=== PATIENT | male | born 1970 | race Caucasian/White ===

== ENCOUNTER 2020-01-10 19:20 | Inpatient (IN) | payer SELFPAY ==
[~2020-01-10] VITALS: Ht 177.8 cm; Wt 104.5 kg
[~2020-01-10 19:20] MED LIST: CHLO25CA10 PO; ONDA4TAB6 PO
[2020-01-10] MEDS ORDERED: normal saline 1000ML IV soln IVB ONE ×2 (19:30→20:15)
[2020-01-10] MEDS ORDERED: LORazepam 2 mg/ml vial IV ONE ×2 (19:30→20:15)
[2020-01-10 19:47] LABS: BASOPHILS % (AUTO) 0.3 % (0-1); EOSINOPHILS % (AUTO) 0 % (0-6); HEMATOCRIT 48.9 % (42.0-52.0); HEMOGLOBIN 16.8 g/dl (14.0-17.9); LYMPHOCYTES # (AUTO) 1.2 X10'3 (1.1-4.8); LYMPHOCYTES % (AUTO) 8.7 % (21-51); MEAN CORPUSCULAR HEMOGLOBIN 31.5 PG (27.0-31.0); MEAN CORPUSCULAR HGB CONC 34.3 g/dL (33.0-36.5); MEAN CORPUSCULAR VOLUME 91.8 FL (78-98); MEAN PLATELET VOLUME 9.3 FL (7.4-10.4); MONOCYTES # (AUTO) 0.4 X10'3 (0-0.9); MONOCYTES % (AUTO) 3.1 % (2-12); NEUTROPHILS # (AUTO) 12.1 X10'3 (1.8-7.7); NEUTROPHILS % (AUTO) 87.9 % (42-75); PLATELET COUNT 206 X10'3 (140-440); RED BLOOD COUNT 5.33 X10'6 (4.70-6.10); RED CELL DISTRIBUTION WIDTH 15.2 % (11.5-14.5); WHITE BLOOD COUNT 13.8 X10'3 (4.5-11.0)
[2020-01-10 19:54] LABS: PARTIAL THROMBOPLASTIN TIME 23 SECONDS (22-32)
[2020-01-10 20:05] LABS: ALANINE AMINOTRANSFERASE 44 U/L (12-78); ALBUMIN 4.1 G/DL (3.4-5.0); ALBUMIN/GLOBULIN RATIO 0.9 (1.1-1.5); ALKALINE PHOSPHATASE 89 IU/L (46-116); ANION GAP 28 (8-16); ASPARTATE AMINO TRANSFERASE 62 U/L (10-37); BILIRUBIN,TOTAL 1.2 MG/DL (0.1-1.0); BLOOD UREA NITROGEN 6 MG/DL (7-18); BUN/CREATININE RATIO 5.7 (5.4-32.0); CALCIUM 9.3 MG/DL (8.5-10.1); CHLORIDE 98 MMOL/L (99-107); CREATININE 1.06 MG/DL (0.60-1.10); ETHANOL 0.031 GM/DL (0.0-0.010); GLUCOSE 88 MG/DL (70-104); LIPASE 56 U/L (73-393); MAGNESIUM 1.2 MG/DL (1.5-2.4); POTASSIUM 3.4 MMOL/L (3.5-5.1); SODIUM 141 MMOL/L (135-145); TOTAL PROTEIN 8.7 G/DL (6.4-8.2); eGFR 74 ML/MIN
[2020-01-10 20:07] LABS: CLARITY,URINE CLEAR (Clear); COLOR,URINE YELLOW (Yellow); GLUCOSE, URINE NEGATIVE (Neg); KETONES,URINE >=80 mg/dl (Neg); LEUKOCYTE ESTERASE ,URINE NEGATIVE (Neg); NITRITES, URINE NEGATIVE (Neg); OCCULT BLOOD,URINE NEGATIVE (Neg); PH,URINE 5.5 (4.8-8.0); PROTEIN,URINE 30 mg/dl (Neg); UROBILINOGEN,URINE 0.2 E.U/dL (0.2-1.0)
[2020-01-10 20:08] LABS: TOTAL CARBON DIOXIDE 14.8 MMOL/L (24-32)
[2020-01-10 20:10] LABS: UA COLLECTION TYPE URINAL
[2020-01-10] MEDS ORDERED: potassium 10mEq/100ml NS w/LIDOcaine (10mg/bag) IV ONE (20:15)
[2020-01-10] MEDS ORDERED: haloperidol lactate 5mg/ml inj IM ONE (20:15)
[2020-01-10] MEDS ORDERED: magnesium 2GM in 50ml NS 50 ML IV ONE ×2 (20:15→21:50)
[2020-01-10] MEDS ORDERED: Potassium Cl inj 20 MEQ, magnesium sulf injection 2 GM, folic acid inj. 1 MG, thiamine ... IV ONE ×6 (20:15)
[2020-01-10 20:18] LABS: SQUAMOUS EPITHELIAL CELL,UR FEW /LPF (FEW)
[2020-01-10] MEDS ORDERED: potassium CL 10mEq/100ml bag 100 ML IV ONE (20:20)
[2020-01-10] MEDS ORDERED: Potassium Cl inj 20 MEQ, magnesium sulf injection 2 GM, thiamine inj. 100 MG, MVI, adul... IV ONE ×5 (20:21)
[2020-01-10 20:25] LABS: BACTERIA,URINE FEW /HPF (Neg); RBC,URINE NONE SEEN /HPF (0-2); WBC,URINE 0-4 /HPF (0-4)
[2020-01-10] MEDS ORDERED: folic acid 1mg/0.2ml inj IV ONE (20:25)
[2020-01-10] MEDS ORDERED: PANT20TA2 PO (21:03)
[2020-01-10] MEDS ORDERED: AMA1T PO (21:03)
[2020-01-10] MEDS ORDERED: CLON0.1T2 (21:03)
[2020-01-10] MEDS ORDERED: GABA-530 PO (21:03)
[2020-01-10] MEDS ORDERED: TADA2.5T2 PO (21:03)
[2020-01-10] MEDS ORDERED: LISI-600 PO (21:03)
[2020-01-10] MEDS ORDERED: NALT50TA PO (21:03)
[2020-01-10] MEDS ORDERED: LORA10TA7 PO (21:03)
[2020-01-10] MEDS ORDERED: magnesium Cl slow-release 64mg tablet PO PRN (22:15)
[2020-01-10] MEDS ORDERED: acetaminophen 325mg tablet PO PRN (22:15)
[2020-01-10] MEDS ORDERED: magnesium hydroxide 30ml (MOM) UD suspension PO PRN (22:15)
[2020-01-10] MEDS ORDERED: potassium Cl 20 mEq SR tablet PO PRN (22:15)
[2020-01-10] MEDS ORDERED: magnesium 2GM in 50ml NS 50 ML IV PRN (22:15)
[2020-01-10] MEDS ORDERED: ondansetron/PF 4mg/2ml inj IV PRN (22:15)
[2020-01-10] MEDS ORDERED: potassium CL 10mEq/100ml bag 100 ML IV PRN ×2 (22:15)
[2020-01-10] MEDS ORDERED: LORazepam 2 mg/ml vial IV PRN (22:15)
[2020-01-10] MEDS ORDERED: mag hydrox/Alum hydrox/simeth 30ml oral suspension PO PRN (22:15)
[2020-01-10] MEDS ORDERED: magnesium 4gm in 100ml NS 100 ML IV PRN (22:15)
[2020-01-10] MEDS ORDERED: insulin Lispro (HumaLOG) vial - multi-dose SQ SCH (22:30)
[2020-01-10] MEDS ORDERED: dextrose ORAL solution 15 GM/59 ML bottle PO PRN ×2 (22:30)
[2020-01-10] MEDS ORDERED: dextrose 50%-water 50ml dispensing syringe IV PRN ×2 (22:30)
[2020-01-10] MEDS ORDERED: MESSAGE TO PHARMACY PO ONE (22:30)
[2020-01-10] MEDS ORDERED: glucagon, human recombinant 1mg kit SUBCUT PRN (22:30)
[2020-01-10] MEDS: normal saline 1000ml 1,000 ML IV SCH (22:52)
[2020-01-10 23:11] LABS: HEMOGLOBIN A1C 5.6 % (4.5-6.2)
[2020-01-10] MEDS: potassium Cl 20 mEq SR tablet PO PRN (23:41)
[2020-01-10 23:45] VITALS: BP 142/69
--- NOTE | 2020-01-11 | NUR ---
CHARGE, NITO HAIDER NOTIFIED DR GRIDER OF LACTIC LEVEL OF 7.7. THERE IS NO NEED FOR FLUID BOLUS, NO NEED FOR BLOOD CULTURE AND NO NEW ORDER RECEIVED.
[2020-01-11] MEDS: LORazepam 2 mg/ml vial IV PRN ×4 (00:11→20:31)
--- NOTE | 2020-01-11 00:25 | NUR ---
notified Dr. GRIDER OF CRITICAL LACTIC OF 4.3. ORDERED ANOTHER LACTIC IN 2HRS.
[2020-01-11 02:28] LABS: BASOPHILS % (AUTO) 0.5 % (0-1); EOSINOPHILS % (AUTO) 0 % (0-6); HEMATOCRIT 41.4 % (42.0-52.0); HEMOGLOBIN 14.2 g/dl (14.0-17.9); LYMPHOCYTES # (AUTO) 0.7 X10'3 (1.1-4.8); LYMPHOCYTES % (AUTO) 7.6 % (21-51); MEAN CORPUSCULAR HGB CONC 34.3 g/dL (33.0-36.5); MEAN CORPUSCULAR VOLUME 90.2 FL (78-98); MONOCYTES # (AUTO) 0.7 X10'3 (0-0.9); MONOCYTES % (AUTO) 7.4 % (2-12); NEUTROPHILS # (AUTO) 8.3 X10'3 (1.8-7.7); NEUTROPHILS % (AUTO) 84.5 % (42-75); PLATELET COUNT 141 X10'3 (140-440); RED BLOOD COUNT 4.59 X10'6 (4.70-6.10); RED CELL DISTRIBUTION WIDTH 15.2 % (11.5-14.5); WHITE BLOOD COUNT 9.8 X10'3 (4.5-11.0)
[2020-01-11 02:43] LABS: ALANINE AMINOTRANSFERASE 33 U/L (12-78); ALBUMIN 3.2 G/DL (3.4-5.0); ALBUMIN/GLOBULIN RATIO 0.8 (1.1-1.5); ALKALINE PHOSPHATASE 69 IU/L (46-116); ANION GAP 14 (8-16); ASPARTATE AMINO TRANSFERASE 49 U/L (10-37); BILIRUBIN,TOTAL 1.3 MG/DL (0.1-1.0); BLOOD UREA NITROGEN 6 MG/DL (7-18); BUN/CREATININE RATIO 5.9 (5.4-32.0); CALCIUM 7.7 MG/DL (8.5-10.1); CHLORIDE 100 MMOL/L (99-107); CREATININE 1.01 MG/DL (0.60-1.10); GLUCOSE 194 MG/DL (70-104); MAGNESIUM 2.8 MG/DL (1.5-2.4); SODIUM 136 MMOL/L (135-145); TOTAL PROTEIN 7.1 G/DL (6.4-8.2); eGFR 79 ML/MIN
[2020-01-11] MEDS ORDERED: ondansetron/PF 4mg/2ml inj IV PRN (03:05)
--- NOTE | 2020-01-11 03:05 | NUR ---
CRITICAL LACTIC ACID OF 4.1. DR GRIDER NOTIFIED. NO NEED TO REPEAT LAB AND NO NEW ORDERS RECEIVED.
--- NOTE | 2020-01-11 06:03 | NUR ---
Problems reprioritized. Patient report given, questions answered & plan of care reviewed with MELIZA SMILEY.
--- NOTE | 2020-01-11 06:20 | NUR ---
Patient in room ORTHO 4015. I have received report from Irma and had the opportunity to ask questions and assume patient care.
--- NOTE | 2020-01-11 06:28 | NUR ---
Problems reprioritized. Patient report given, questions answered & plan of care reviewed with MELIZA VELIZ.
[2020-01-11 06:35] VITALS: BP 145/93
[2020-01-11] MEDS: K and/or MAG REPLACEMENT MC SCH ×2 (08:00→20:00)
[2020-01-11] MEDS: pantoprazole 40mg Tablet.DR PO SCH (09:31)
[2020-01-11] MEDS: loratadine 10mg tablet PO SCH (09:31)
[2020-01-11] MEDS: naltrexone 50mg tablet PO SCH (09:31)
[2020-01-11] MEDS: lisinopril 20mg tablet PO SCH (09:32)
[2020-01-11] MEDS: thiamine 100mg tablet PO SCH (09:32)
[2020-01-11] MEDS: heparin, porcine 5000 units/ml vial SQ SCH ×2 (09:34→20:00)
[2020-01-11] MEDS: normal saline 1000ml 1,000 ML IV SCH ×2 (09:38→20:31)
[2020-01-11 10:00] VITALS: BP 150/85
--- NOTE | 2020-01-11 14:52 | NUR ---
PAGER ID: [phone] MESSAGE: Tessie Wooten on ortho, Mr. López in [id number] is asking about his discharge, states he is ready to go, just christos, #[phone]
[2020-01-11] MEDS ORDERED: OMEP-50 PO (17:12)
--- NOTE | 2020-01-11 18:10 | NUR ---
Problems reprioritized. Patient report given, questions answered & plan of care reviewed with Mabel.
--- NOTE | 2020-01-11 18:15 | NUR ---
RECEIVED REPORT FROM JOSE ALFREDO HAIDER AND ASSUMED PATIENT CARE
[2020-01-11 22:00] VITALS: BP 129/74
[2020-01-12] MEDS: normal saline 1000ml 1,000 ML IV SCH (04:15)
[2020-01-12 06:00] VITALS: BP 159/96
[2020-01-12 06:17] LABS: BASOPHILS % (AUTO) 0.5 % (0-1); EOSINOPHILS % (AUTO) 0.5 % (0-6); HEMATOCRIT 40.7 % (42.0-52.0); HEMOGLOBIN 14.2 g/dl (14.0-17.9); LYMPHOCYTES # (AUTO) 1.2 X10'3 (1.1-4.8); LYMPHOCYTES % (AUTO) 27.8 % (21-51); MEAN CORPUSCULAR HEMOGLOBIN 31.3 PG (27.0-31.0); MEAN CORPUSCULAR HGB CONC 34.8 g/dL (33.0-36.5); MEAN CORPUSCULAR VOLUME 90.1 FL (78-98); MONOCYTES # (AUTO) 0.4 X10'3 (0-0.9); MONOCYTES % (AUTO) 10.1 % (2-12); NEUTROPHILS # (AUTO) 2.6 X10'3 (1.8-7.7); NEUTROPHILS % (AUTO) 61.1 % (42-75); PLATELET COUNT 107 X10'3 (140-440); RED BLOOD COUNT 4.52 X10'6 (4.70-6.10); RED CELL DISTRIBUTION WIDTH 15.4 % (11.5-14.5); WHITE BLOOD COUNT 4.2 X10'3 (4.5-11.0)
[2020-01-12 06:24] LABS: ALANINE AMINOTRANSFERASE 26 U/L (12-78); ALBUMIN 2.9 G/DL (3.4-5.0); ALBUMIN/GLOBULIN RATIO 0.8 (1.1-1.5); ALKALINE PHOSPHATASE 59 IU/L (46-116); ANION GAP 8 (8-16); ASPARTATE AMINO TRANSFERASE 35 U/L (10-37); BILIRUBIN,TOTAL 1.3 MG/DL (0.1-1.0); BLOOD UREA NITROGEN 4 MG/DL (7-18); BUN/CREATININE RATIO 4.8 (5.4-32.0); CALCIUM 7.5 MG/DL (8.5-10.1); CHLORIDE 103 MMOL/L (99-107); CREATININE 0.83 MG/DL (0.60-1.10); GLUCOSE 112 MG/DL (70-104); MAGNESIUM 1.7 MG/DL (1.5-2.4); POTASSIUM 3.4 MMOL/L (3.5-5.1); SODIUM 138 MMOL/L (135-145); TOTAL CARBON DIOXIDE 27.3 MMOL/L (24-32); TOTAL PROTEIN 6.6 G/DL (6.4-8.2); eGFR > 90 ML/MIN
--- NOTE | 2020-01-12 06:30 | NUR ---
REPORT GIVEN TO MALISSA HAIDER
[2020-01-12] MEDS: K and/or MAG REPLACEMENT MC SCH (08:00)
[2020-01-12] MEDS: pantoprazole 40mg Tablet.DR PO SCH (08:15)
[2020-01-12] MEDS: thiamine 100mg tablet PO SCH (08:16)
[2020-01-12] MEDS: loratadine 10mg tablet PO SCH (08:16)
[2020-01-12] MEDS: lisinopril 20mg tablet PO SCH (08:24)
[2020-01-12] MEDS: naltrexone 50mg tablet PO SCH (08:24)
[2020-01-12] MEDS: heparin, porcine 5000 units/ml vial SQ SCH (08:27)
[2020-01-12] MEDS: potassium Cl 20 mEq SR tablet PO PRN (08:33)
[2020-01-12] MEDS: LORazepam 2 mg/ml vial IV PRN (08:35)
[2020-01-12 10:00] VITALS: BP 171/108
--- NOTE | 2020-01-12 11:27 | NUR ---
Student documentation: I have reviewed all interventions, assessments performed and documented by Jaguar Person. Student Medication Administration: For this medication-pass time frame, all medication were reviewed, dispensed, administered and documented per hospital policy by [employer]ar Person.
--- NOTE | 2020-01-12 12:30 | NUR ---
DM Consult: Pt A1C less than 7 and not appropriate for DM ed at this time. Addendum: 01/12/20 at [address] Amended: Links added.
[2020-01-12] MEDS ORDERED: gabapentin 100mg capsule PO SCH (21:00)
[2020-01-13] MEDS ORDERED: pantoprazole 40mg Tablet.DR PO SCH (07:30)
[2020-01-13] MEDS ORDERED: glimepiride 1 MG tablet PO SCH (08:00)
[2020-01-13] MEDS ORDERED: non-formulary drug (Omeprazole 1 CAP) PO SCH (08:00)
== END 2020-01-12 15:34 | disposition home or self-care (01) | DRG 641 ==
LOC: ER 19:20 → ED HOLD 22:11 → ORTHO 4S 23:40
PROVIDERS: ADMIT Internal Medicine; ATTEND Internal Medicine
DX: E87.2 Acidosis (principal); F10.239 Alcohol dependence with withdrawal, unspecified; E11.42 Type 2 diabetes mellitus with diabetic polyneuropathy; E83.42 Hypomagnesemia; E87.5 Hyperkalemia; I10 Essential (primary) hypertension; Z79.84 Long term (current) use of oral hypoglycemic drugs; Z91.19 Patient's noncompliance with other medical treatment and regimen; K21.9 Gastro-esophageal reflux disease without esophagitis
CPT/HCPCS: 36415; 71045; 80053; 80320; 81001; 82948; 83036; 83605; 83690; 83735; 83880; 84484; 85025; 85610; 85730; 87081; 93005; 96372; 96374; 96375; 99285; G0378; J1630; J1644; J1815; J2060; J2405; J3411; J3475; J3480; J3490; J7030

== ENCOUNTER 2020-03-05 23:17 | Emergency (ER) | payer SELFPAY ==
[~2020-03-05] VITALS: Ht 170.2 cm; Wt 95.0 kg
[~2020-03-05 23:17] MED LIST changes: +AMA1T PO; -CHLO25CA10 PO; +CLON0.1T2; +GABA-530 PO; +LISI-600 PO; +LORA10TA7 PO; +NALT50TA PO; +OMEP-50 PO; -ONDA4TAB6 PO; +TADA2.5T2 PO
[2020-03-05 23:19] VITALS: BP 181/96
[2020-03-05] MEDS ORDERED: proparacaine 0.5% ophthalmic drops 15ml EACHEYE ONE (23:35)
[2020-03-05] MEDS ORDERED: TETanus/Pertussis (Acell)/Diphther VAC/PF (Tdap-Adult) 0.5ml syringe IMVAC ONE (23:45)
[2020-03-05] MEDS ORDERED: ondansetron 4mg rapidly disintigrating tab PO ONE (23:45)
[2020-03-05] MEDS ORDERED: erythromycin ophthalmic ointment 1gm tube EACHEYE ONE (23:55)
[2020-03-05] MEDS ORDERED: ibuprofen tablet 400 MG TABLET PO ONE (23:55)
[2020-03-05] MEDS ORDERED: acetaminophen 325mg tablet PO ONE (23:55)
[2020-03-06] MEDS ORDERED: ERYT1OIN6 EACHEYE (00:14)
== END 2020-03-06 00:29 | disposition home or self-care (01) ==
LOC: ER 23:17
DX: H16.133 Photokeratitis, bilateral (principal); I10 Essential (primary) hypertension; E11.9 Type 2 diabetes mellitus without complications; Z72.89 Other problems related to lifestyle; Z79.899 Other long term (current) drug therapy
CPT/HCPCS: 90471; 90715; 99284

== ENCOUNTER 2020-04-18 08:54 | Inpatient (IN) | payer OTHER, SELFPAY ==
[~2020-04-18] VITALS: Ht 170.2 cm; Wt 95.5 kg
[~2020-04-18 08:54] MED LIST changes: -CLON0.1T2; +CLON0.1T2 PO
[2020-04-18] MEDS ORDERED: folic acid 1mg tablet PO ONE (09:10)
[2020-04-18] MEDS ORDERED: normal saline 1000ML IV soln IV ONE (09:10)
[2020-04-18] MEDS ORDERED: LORazepam 2 mg/ml vial IM ONE (09:10)
[2020-04-18] MEDS ORDERED: thiamine 100mg tablet PO ONE (09:10)
[2020-04-18] MEDS ORDERED: LORazepam 2 mg/ml vial IV ONE ×2 (09:45→14:25)
[2020-04-18 09:47] LABS: BASOPHILS # (AUTO) 0.1 X10'3 (0-0.2); BASOPHILS % (AUTO) 0.3 % (0-1); EOSINOPHILS % (AUTO) 0 % (0-6); HEMATOCRIT 45.5 % (42.0-52.0); HEMOGLOBIN 14.9 g/dl (14.0-17.9); LYMPHOCYTES # (AUTO) 0.6 X10'3 (1.1-4.8); LYMPHOCYTES % (AUTO) 2.6 % (21-51); MEAN CORPUSCULAR HEMOGLOBIN 29.5 PG (27.0-31.0); MEAN CORPUSCULAR HGB CONC 32.7 g/dL (33.0-36.5); MEAN CORPUSCULAR VOLUME 90.2 FL (78-98); MEAN PLATELET VOLUME 9.3 FL (7.4-10.4); MONOCYTES # (AUTO) 0.8 X10'3 (0-0.9); MONOCYTES % (AUTO) 3.7 % (2-12); NEUTROPHILS # (AUTO) 20.8 X10'3 (1.8-7.7); NEUTROPHILS % (AUTO) 93.4 % (42-75); PLATELET COUNT 230 X10'3 (140-440); RED BLOOD COUNT 5.05 X10'6 (4.70-6.10); RED CELL DISTRIBUTION WIDTH 16.6 % (11.5-14.5); WHITE BLOOD COUNT 22.2 X10'3 (4.5-11.0)
[2020-04-18 09:55] LABS: ALANINE AMINOTRANSFERASE 24 U/L (12-78); ALBUMIN 3.8 G/DL (3.4-5.0); ALBUMIN/GLOBULIN RATIO 0.9 (1.1-1.5); ALKALINE PHOSPHATASE 98 IU/L (46-116); ANION GAP 39 (8-16); ASPARTATE AMINO TRANSFERASE 46 U/L (10-37); BILIRUBIN,TOTAL 0.8 MG/DL (0.1-1.0); BLOOD UREA NITROGEN 8 MG/DL (7-18); BUN/CREATININE RATIO 4.4 (5.4-32.0); CALCIUM 8.8 MG/DL (8.5-10.1); CHLORIDE 97 MMOL/L (99-107); CREATININE 1.81 MG/DL (0.60-1.10); ETHANOL 0.062 GM/DL (0.0-0.010); GLUCOSE 76 MG/DL (70-104); LIPASE 65 U/L (73-393); MAGNESIUM 1.5 MG/DL (1.5-2.4); POTASSIUM 3.8 MMOL/L (3.5-5.1); SODIUM 144 MMOL/L (135-145); TOTAL PROTEIN 8.1 G/DL (6.4-8.2); eGFR 40 ML/MIN
[2020-04-18 09:56] LABS: TOTAL CARBON DIOXIDE 8.5 MMOL/L (24-32)
[2020-04-18] MEDS ORDERED: ondansetron/PF 4mg/2ml inj IV ONE (10:05)
[2020-04-18] MEDS ORDERED: ringers solution, lactated 1000ml IV soln IV ONE (10:05)
[2020-04-18] MEDS ORDERED: phenobarbital inj 260 MG in normal saline 100ml IV soln 100 ML IV ONE (10:40)
[2020-04-18] MEDS ORDERED: phenobarbital inj 260 MG in normal saline 100ml IV soln 98 ML IV ONE (10:50)
[2020-04-18] MEDS ORDERED: morphine 2 MG/ML inj. syringe IV ONE (10:50)
[2020-04-18] MEDS ORDERED: ketorolac tromethamine 15mg/ml inj. IV ONE (10:50)
--- NOTE | 2020-04-18 11:04 | NUR ---
US at bedside
[2020-04-18] MEDS ORDERED: CefTRIAXone/D5W-Rocephin 1gm 50 ML IV ONE (11:15)
--- NOTE | 2020-04-18 11:21 | NUR ---
lab at bedside to draw culture and lactic
[2020-04-18] MEDS ORDERED: phenobarbital inj 130 MG in normal saline 100ml IV soln 99 ML IV ONE ×3 (11:30→13:10)
[2020-04-18] MEDS ORDERED: mag hydrox/Alum hydrox/simeth 30ml oral suspension PO ONE ×2 (12:00→14:35)
[2020-04-18] MEDS ORDERED: LIDOcaine Viscous 15ml cup MM PRN (12:00)
[2020-04-18 12:10] LABS: CREATINE KINASE 410 U/L (39-308)
[2020-04-18 12:17] LABS: CLARITY,URINE SLIGHTLY CLOUDY (Clear); COLOR,URINE YELLOW (Yellow); GLUCOSE, URINE NEGATIVE (Neg); KETONES,URINE 15 mg/dl (Neg); LEUKOCYTE ESTERASE ,URINE TRACE (Neg); NITRITES, URINE NEGATIVE (Neg); OCCULT BLOOD,URINE SMALL (Neg); PH,URINE 5.5 (4.8-8.0); PROTEIN,URINE TRACE mg/dl (Neg); UROBILINOGEN,URINE 0.2 E.U/dL (0.2-1.0)
[2020-04-18 12:24] LABS: UA COLLECTION TYPE VOIDED
[2020-04-18 12:25] LABS: SQUAMOUS EPITHELIAL CELL,UR FEW /LPF (FEW)
[2020-04-18 12:26] LABS: BACTERIA,URINE 1+ /HPF (Neg); RBC,URINE 0-2 /HPF (0-2); WBC,URINE 0-4 /HPF (0-4)
[2020-04-18 12:34] LABS: ABG BASE EXCESS -15.7 mmol/L (-2.0-2.0); ABG HCO3 9.7 mmol/L (22.0-26.0); ABG OXYGEN SATURATION 95.7 % (94-97); ABG PO2 (T) 85.9 mmHg (75.0-100.0); ALLEN'S TEST POSITIVE; FCOHb 0.2 % (0.0-3.9); FMetHb 0.2 % (0.0-1.5); FO2Hb 95.3 % (94-97)
[2020-04-18 12:39] LABS: URINE AMPHETAMINE SCREEN NEGATIVE (Neg); URINE BARBITUATE SCREEN NEGATIVE (Neg); URINE BENZODIAZEPINES SCREEN NEGATIVE (Neg); URINE CANNABINOID SCREEN NEGATIVE (Neg); URINE COCAINE SCREEN NEGATIVE (Neg); URINE METHADONE SCREEN NEGATIVE (Neg); URINE OPIATE SCREEN NEGATIVE (Neg); URINE PHENCYCLIDINE SCREEN NEGATIVE (Neg)
[2020-04-18] MEDS ORDERED: normal saline 1000ML IV soln IVB ONE ×3 (12:40→14:25)
[2020-04-18] MEDS ORDERED: HYDROmorphone inj. 0.5 MG/0.5 ML DISP.SYRIN IV PRN (12:55)
[2020-04-18] MEDS ORDERED: thiamine inj. 100 MG in normal saline 100ml IV soln 100 ML IV ONE (12:55)
[2020-04-18] MEDS ORDERED: HYDROcodone/acetaminophen 5mg/325mg tablet PO PRN (12:55)
[2020-04-18] MEDS ORDERED: haloperidol lactate 5mg/ml inj IM PRN (12:55)
[2020-04-18] MEDS ORDERED: magnesium 4gm in 100ml NS 100 ML IV PRN (12:55)
[2020-04-18] MEDS ORDERED: sodium bicarbonate (8.4%) inj. 150 MEQ in sodium chloride 0.45% 850 ML IV SCH (12:55)
[2020-04-18] MEDS ORDERED: ondansetron/PF 4mg/2ml inj IV PRN (12:55)
[2020-04-18] MEDS ORDERED: magnesium hydroxide 30ml (MOM) UD suspension PO PRN (12:55)
[2020-04-18] MEDS ORDERED: dicyclomine 10 MG capsule PO PRN (12:55)
[2020-04-18] MEDS ORDERED: potassium Cl 20 mEq SR tablet PO PRN (12:55)
[2020-04-18] MEDS ORDERED: cyclobenzaprine 10mg tablet PO PRN (12:55)
[2020-04-18] MEDS ORDERED: metoclopramide 5 mg/ml inj IV PRN (12:55)
[2020-04-18] MEDS ORDERED: HYDROcodone/acetaminophen 10/325mg tab PO PRN (12:55)
[2020-04-18] MEDS ORDERED: bisacodyl 10mg suppository rectal RC PRN (12:55)
[2020-04-18] MEDS ORDERED: magnesium 2GM in 50ml NS 50 ML IV PRN (12:55)
[2020-04-18] MEDS ORDERED: acetaminophen 325mg tablet PO PRN (12:55)
[2020-04-18] MEDS ORDERED: mag hydrox/Alum hydrox/simeth 30ml oral suspension PO PRN (12:55)
[2020-04-18] MEDS ORDERED: haloperidol 5mg tablet PO PRN (12:55)
[2020-04-18] MEDS ORDERED: potassium Cl 40MEQ/1/2NS 520ml 520 ML IV PRN ×2 (12:55)
[2020-04-18] MEDS ORDERED: sodium bicarbonate (8.4%) inj. 150 MEQ in sodium chloride 0.45% 1,000 ML IV SCH (13:10)
[2020-04-18] MEDS ORDERED: insulin Lispro (HumaLOG) vial - multi-dose SQ SCH (13:55)
[2020-04-18] MEDS ORDERED: glucagon, human recombinant 1mg kit SUBCUT PRN (13:55)
[2020-04-18] MEDS ORDERED: dextrose 50%-water 50ml dispensing syringe IV PRN ×2 (13:55)
[2020-04-18] MEDS ORDERED: dextrose ORAL solution 15 GM/59 ML bottle PO PRN ×2 (13:55)
[2020-04-18] MEDS ORDERED: MESSAGE TO PHARMACY PO ONE (13:55)
[2020-04-18 14:58] LABS: HEMOGLOBIN A1C 5.3 % (4.5-6.2)
[2020-04-18 15:23] LABS: PLATELET COUNT 134 X10'3 (140-440)
[2020-04-18 15:39] LABS: D-DIMER 1.19 MG/L FEU (0-0.50); PARTIAL THROMBOPLASTIN TIME 26 SECONDS (22-32)
[2020-04-18] MEDS: normal saline 1000ml 1,000 ML IV SCH ×2 (16:18→22:34)
[2020-04-18] MEDS: vancomycin/NS 1 GM ADD-VANTAGE 250 ML IV SCH (16:33)
--- NOTE | 2020-04-18 16:58 | NUR ---
Spoke with after approval by Pt. , Svitlana and updated her on Patient condition and admission. [phone].
[2020-04-18] MEDS: LORazepam 2 mg/ml vial IV PRN ×2 (18:31→22:34)
--- NOTE | 2020-04-18 18:43 | NUR ---
BREAKING PRIMARY RN. PT PULLED OUT BOTH IV LINES, VITAL MONITORS, AND ATTEMPTED TO GET OUT OF BED. PT REDIRECTED. NEW IV LINE PLACED. PRN MEDICATIONS GIVEN - SEE EMAR
[2020-04-18] MEDS: K and/or MAG REPLACEMENT MC SCH (20:00)
[2020-04-18] MEDS ORDERED: temazepam 15mg capsule PO PRN (21:00)
[2020-04-18] MEDS: insulin glargine (Lantus) pen - multi-dose SQ SCH (21:00)
--- NOTE | 2020-04-18 22:13 | NUR ---
PT BLOOD SUGAR 40. 1 AMP D50 ADMINISTERED PER PROTOCOL
[2020-04-18] MEDS: gabapentin 300mg capsule PO SCH (22:24)
--- NOTE | 2020-04-18 22:31 | NUR ---
PT ATE YOGURT AND PART OF TURKEY SANDWICH. 15 MIN RECHECK - BG 89. WILL CONTINUE TO MONITOR
--- NOTE | 2020-04-18 22:45 | NUR ---
CHEO OBREGON NOTIFIED OF PT LOW BLOOD SUGAR INCIDENT AND OF PT TRENDING TROPONINS. CHEO VERBAL ORDER FOR PROCALCITONIN, CRP, COVID, AND NEW EKG.
--- NOTE | 2020-04-18 23:01 | NUR ---
md wagnre noted ekg
[2020-04-18 23:11] LABS: C-REACTIVE PROTEIN 2.83 MG/DL (0.0-0.5)
--- NOTE | 2020-04-18 23:19 | NUR ---
glucose 119
[2020-04-19] VITALS (7 sets, daily range): BP systolic 93–164; BP diastolic 52–92
[2020-04-19 01:04] LABS: HEMATOCRIT 39.8 % (42.0-52.0); MEAN CORPUSCULAR VOLUME 87.2 FL (78-98); RED BLOOD COUNT 4.56 X10'6 (4.70-6.10); RED CELL DISTRIBUTION WIDTH 15.4 % (11.5-14.5)
[2020-04-19 01:05] LABS: BASOPHILS % (AUTO) 0.3 % (0-1); EOSINOPHILS % (AUTO) 0 % (0-6); HEMOGLOBIN 13.5 g/dl (14.0-17.9); LYMPHOCYTES # (AUTO) 1.2 X10'3 (1.1-4.8); LYMPHOCYTES % (AUTO) 9.9 % (21-51); MEAN CORPUSCULAR HEMOGLOBIN 29.7 PG (27.0-31.0); MEAN CORPUSCULAR HGB CONC 34.1 g/dL (33.0-36.5); MEAN PLATELET VOLUME 8.8 FL (7.4-10.4); MONOCYTES # (AUTO) 0.9 X10'3 (0-0.9); MONOCYTES % (AUTO) 7.3 % (2-12); NEUTROPHILS # (AUTO) 10.3 X10'3 (1.8-7.7); NEUTROPHILS % (AUTO) 82.5 % (42-75); PLATELET COUNT 134 X10'3 (140-440); WHITE BLOOD COUNT 12.5 X10'3 (4.5-11.0)
[2020-04-19 01:12] LABS: ALANINE AMINOTRANSFERASE 23 U/L (12-78); ALBUMIN 2.5 G/DL (3.4-5.0); ALBUMIN/GLOBULIN RATIO 0.8 (1.1-1.5); ALKALINE PHOSPHATASE 51 IU/L (46-116); ANION GAP 7 (8-16); ASPARTATE AMINO TRANSFERASE 59 U/L (10-37); BILIRUBIN,TOTAL 0.7 MG/DL (0.1-1.0); BLOOD UREA NITROGEN 13 MG/DL (7-18); BUN/CREATININE RATIO 12.4 (5.4-32.0); CALCIUM 6.6 MG/DL (8.5-10.1); CHLORIDE 109 MMOL/L (99-107); CREATININE 1.05 MG/DL (0.60-1.10); GLUCOSE 124 MG/DL (70-104); SODIUM 141 MMOL/L (135-145); TOTAL PROTEIN 5.6 G/DL (6.4-8.2); eGFR 75 ML/MIN
[2020-04-19 01:16] LABS: AMYLASE 164 U/L (25-115); LIPASE 73 U/L (73-393); MAGNESIUM 1.2 MG/DL (1.5-2.4)
[2020-04-19 01:21] LABS: TROPONIN I 3.03 NG/ML (0.0-0.05)
[2020-04-19] MEDS: vancomycin/NS 1 GM ADD-VANTAGE 250 ML IV SCH ×2 (04:27→15:56)
[2020-04-19] MEDS: normal saline 1000ml 1,000 ML IV SCH ×3 (06:35→22:35)
--- NOTE | 2020-04-19 07:00 | NUR ---
REPORT RECEIVED BY SP HAIDER. PT RACHEL Lim [facility] PT IV INFILTRATED. STARTED NEW IV TO RIGHT HAND. PT WITH HIGH ANXIETY. PT NOT STAYING STILL AT THIS TIME. PT HAS A BG OF 55 GAVE HIM APPLE JUICE. WILL CONT TO MONITOR. PT ABLE TO RESPOND TO NAME WILL CONT TO EVALUATE.
[2020-04-19] MEDS: K and/or MAG REPLACEMENT MC SCH ×2 (08:00→20:55)
[2020-04-19] MEDS ORDERED: thiamine inj. 100 MG, MVI, adult No.4 with vit. K 10 ML in dextrose 5% water 500ml 500 ML IV SCH ×3 (08:00)
[2020-04-19] MEDS ORDERED: pantoprazole 40mg Tablet.DR PO SCH (08:00)
[2020-04-19] MEDS ORDERED: nicotine 14mg patch - 24hr TD SCH (08:00)
[2020-04-19] MEDS: folic acid 1mg tablet PO SCH (08:19)
[2020-04-19] MEDS: CefTRIAXone/D5W-Rocephin 1gm 50 ML IV SCH (08:20)
[2020-04-19] MEDS: LORazepam 1 MG tablet PO PRN ×2 (08:20→15:56)
[2020-04-19] MEDS: multivitamins, therapeutics tablet PO SCH (08:20)
[2020-04-19] MEDS: cloNIDine 0.1 mg tablet PO SCH (08:20)
[2020-04-19] MEDS: thiamine 100mg tablet PO SCH (08:20)
[2020-04-19] MEDS: magnesium Cl slow-release 64mg tablet PO PRN ×2 (08:21→20:47)
[2020-04-19] MEDS: pantoprazole 40 MG vial IV SCH (08:21)
[2020-04-19] MEDS: enoxaparin 40mg/0.4ml syringe SUBCUT SCH (08:21)
--- NOTE | 2020-04-19 08:56 | NUR ---
PAGER ID: [phone] MESSAGE: [id number] at 3.17. no chest pain at this time. sinus tachy at 110 . thanks
--- NOTE | 2020-04-19 09:49 | NUR ---
DM consult: Pt with A1c 5.3% down from 5.6% 01/10/2020 per EMR, DM education not warranted at this time. Recommend continuing regular diet in view of current A1c and low BG levels since admit. Will continue to follow. Addendum: 04/19/20 at [address] Amended: Links added.
--- NOTE | 2020-04-19 11:00 | NUR ---
PATIENT WITH LOTS NOF ANXIETY. KEEPS TOSSING AND TURNING IN BED NO CHEST PAIN AT THIS TIME. PT STATES HES JUST SLEEPING. PT PULLED IV AGAIN. WILL RESTART NEW IV. WILL CONTINUE TO MO BARRY
[2020-04-19] MEDS ORDERED: aspirin 325mg tablet PO ONE (14:10)
[2020-04-19] MEDS ORDERED: nitroGLYCERIN 0.4mg SUBLingual tab SL PRN (17:20)
[2020-04-19] MEDS ORDERED: aminophylline 250mg/10ml inj. IV PRN (17:20)
[2020-04-19] MEDS ORDERED: metoprolol tartrate 1mg/ml inj IV PRN (17:20)
[2020-04-19] MEDS ORDERED: regadenoson 0.4mg/5ml syringe IV ONE (17:20)
[2020-04-19] MEDS ORDERED: regadenoson 0.4mg/5ml syringe IV PRN (18:10)
--- NOTE | 2020-04-19 18:24 | NUR ---
report given to anjelica medina. pt alert sleeping at this time no acute distress noted at this time. pt iv in place runnig ns no infiltration observed. pt still confused but easy to reorientate. jayme in am npo at ok. transfer care.
--- NOTE | 2020-04-19 18:24 | NUR ---
Patient in room PCU 3022. I have received report from Rm HAIDER and had the opportunity to ask questions and assume patient care.
[2020-04-19] MEDS: metoprolol tartrate 12.5mg (1/2 tablet) PO SCH (20:46)
[2020-04-19] MEDS: lactobacillus rhamnosus 10,000 MMU CELLS/CAPSULE PO SCH (20:55)
[2020-04-19] MEDS: gabapentin 300mg capsule PO SCH (21:00)
[2020-04-19] MEDS: insulin glargine (Lantus) pen - multi-dose SQ SCH (21:00)
[2020-04-20] VITALS (12 sets, daily range): BP systolic 131–176; BP diastolic 79–97
[2020-04-20] MEDS: acetaminophen 325mg tablet PO PRN (02:50)
[2020-04-20 03:15] LABS: BASOPHILS % (AUTO) 0.6 % (0-1); EOSINOPHILS % (AUTO) 0.3 % (0-6); HEMATOCRIT 37.3 % (42.0-52.0); HEMOGLOBIN 13.2 g/dl (14.0-17.9); LYMPHOCYTES # (AUTO) 1.2 X10'3 (1.1-4.8); LYMPHOCYTES % (AUTO) 18.8 % (21-51); MEAN CORPUSCULAR HEMOGLOBIN 30.4 PG (27.0-31.0); MEAN CORPUSCULAR HGB CONC 35.4 g/dL (33.0-36.5); MEAN CORPUSCULAR VOLUME 85.8 FL (78-98); MEAN PLATELET VOLUME 8.9 FL (7.4-10.4); MONOCYTES # (AUTO) 0.5 X10'3 (0-0.9); MONOCYTES % (AUTO) 7.2 % (2-12); NEUTROPHILS # (AUTO) 4.7 X10'3 (1.8-7.7); NEUTROPHILS % (AUTO) 73.1 % (42-75); PLATELET COUNT 100 X10'3 (140-440); RED BLOOD COUNT 4.35 X10'6 (4.70-6.10); RED CELL DISTRIBUTION WIDTH 15.6 % (11.5-14.5); WHITE BLOOD COUNT 6.5 X10'3 (4.5-11.0)
[2020-04-20 03:26] LABS: ALANINE AMINOTRANSFERASE 27 U/L (12-78); ALBUMIN 2.6 G/DL (3.4-5.0); ALBUMIN/GLOBULIN RATIO 0.8 (1.1-1.5); ALKALINE PHOSPHATASE 54 IU/L (46-116); ANION GAP 8 (8-16); ASPARTATE AMINO TRANSFERASE 65 U/L (10-37); BILIRUBIN,TOTAL 0.8 MG/DL (0.1-1.0); BLOOD UREA NITROGEN 5 MG/DL (7-18); BUN/CREATININE RATIO 6.9 (5.4-32.0); CHLORIDE 106 MMOL/L (99-107); CREATININE 0.72 MG/DL (0.60-1.10); GLUCOSE 88 MG/DL (70-104); POTASSIUM 3.2 MMOL/L (3.5-5.1); SODIUM 142 MMOL/L (135-145); TOTAL CARBON DIOXIDE 27.7 MMOL/L (24-32); eGFR > 90 ML/MIN
[2020-04-20 03:27] LABS: AMYLASE 64 U/L (25-115); LIPASE 105 U/L (73-393); MAGNESIUM 1.4 MG/DL (1.5-2.4)
[2020-04-20] MEDS ORDERED: VANCOMYCIN LEVEL IV ONE (03:30)
[2020-04-20] MEDS: vancomycin/NS 1 GM ADD-VANTAGE 250 ML IV SCH (03:34)
--- NOTE | 2020-04-20 06:00 | NUR ---
report received by anjelica medina. patient laying on bed with bed at lowest postion. pt sleeping without distress. pt iv to left fa flsuing well. will assume care
--- NOTE | 2020-04-20 06:02 | NUR ---
Problems reprioritized. Patient report given, questions answered & plan of care reviewed with Rm HAIDER.
[2020-04-20] MEDS: normal saline 1000ml 1,000 ML IV SCH ×2 (07:20→16:59)
[2020-04-20] MEDS: enoxaparin 40mg/0.4ml syringe SUBCUT SCH (07:21)
[2020-04-20] MEDS: CefTRIAXone/D5W-Rocephin 1gm 50 ML IV SCH (07:21)
[2020-04-20] MEDS: magnesium Cl slow-release 64mg tablet PO PRN ×2 (07:21→20:22)
[2020-04-20] MEDS: multivitamins, therapeutics tablet PO SCH (07:22)
[2020-04-20] MEDS: metoprolol tartrate 12.5mg (1/2 tablet) PO SCH ×2 (07:22→20:26)
[2020-04-20] MEDS: thiamine 100mg tablet PO SCH (07:22)
[2020-04-20] MEDS: lactobacillus rhamnosus 10,000 MMU CELLS/CAPSULE PO SCH ×2 (07:22→20:23)
[2020-04-20] MEDS: pantoprazole 40 MG vial IV SCH (07:23)
[2020-04-20] MEDS: cloNIDine 0.1 mg tablet PO SCH (07:23)
[2020-04-20] MEDS: potassium Cl 20 mEq SR tablet PO PRN ×3 (07:23→20:23)
[2020-04-20] MEDS: folic acid 1mg tablet PO SCH (07:23)
[2020-04-20] MEDS: K and/or MAG REPLACEMENT MC SCH ×2 (07:24→20:29)
--- NOTE | 2020-04-20 10:15 | NUR ---
patient back form lexiscan dneies any acute distress. pt able to move all extremties. will cont to monitor
--- NOTE | 2020-04-20 11:29 | NUR ---
PAGER ID: [phone] MESSAGE: Dr. Montelongo patient in 3022 Maribel Johnson blood pressure is 162/87. can I have meds to tracyst is blood pressure? does he still need NS at 125 thanks
--- NOTE | 2020-04-20 11:53 | NUR ---
PAGER ID: [phone] MESSAGE: DR. FISCHER ALSO ON PATIENT 22 A LEXISCAN IMPRESSION SHOWS NEGATIVE INFARCT CAN WE FEED PATIENT THANKS
[2020-04-20] MEDS ORDERED: lisinopril 10 MG tablet PO ONE (12:05)
[2020-04-20] MEDS ORDERED: VANCOmycin 1250MG/NS 250ml Bag 250 ML IV SCH (14:00)
--- NOTE | 2020-04-20 18:00 | NUR ---
Patient in room PCU 3022. I have received report from BAL HAIDER and had the opportunity to ask questions and assume patient care.
--- NOTE | 2020-04-20 18:33 | NUR ---
report given to julissa medina. pt laying on bed with bed at lowest postion. pt sleeping no distress noted. pt skin color wnl. will transfer care
[2020-04-20] MEDS: gabapentin 300mg capsule PO SCH (20:22)
[2020-04-20] MEDS: insulin glargine (Lantus) pen - multi-dose SQ SCH (21:00)
[2020-04-21] MEDS: acetaminophen 325mg tablet PO PRN (01:09)
[2020-04-21 02:00] VITALS: BP_SYST 105; BP_SYST 153; BP_DIAS 41; BP_DIAS 88
[2020-04-21 06:00] VITALS: BP 163/85
[2020-04-21] MEDS: normal saline 1000ml 1,000 ML IV SCH (06:02)
--- NOTE | 2020-04-21 06:29 | NUR ---
report received by wendy medina. pt slepping at this time. pt laying on to his right side. no acute distress seen at this time. iv to l fa running at ns 70. no pain observed will continue to monitor and assume care.
--- NOTE | 2020-04-21 06:46 | NUR ---
Problems reprioritized. Patient report given, questions answered & plan of care reviewed with BAL HAIDER.
[2020-04-21 06:50] LABS: BASOPHILS % (AUTO) 0.7 % (0-1); EOSINOPHILS # (AUTO) 0.1 X10'3 (0-0.9); EOSINOPHILS % (AUTO) 1.5 % (0-6); HEMATOCRIT 34.4 % (42.0-52.0); HEMOGLOBIN 12.3 g/dl (14.0-17.9); LYMPHOCYTES # (AUTO) 1.3 X10'3 (1.1-4.8); LYMPHOCYTES % (AUTO) 26.9 % (21-51); MEAN CORPUSCULAR HEMOGLOBIN 30.9 PG (27.0-31.0); MEAN CORPUSCULAR HGB CONC 35.7 g/dL (33.0-36.5); MEAN CORPUSCULAR VOLUME 86.4 FL (78-98); MONOCYTES # (AUTO) 0.4 X10'3 (0-0.9); NEUTROPHILS % (AUTO) 61.9 % (42-75); PLATELET COUNT 102 X10'3 (140-440); RED BLOOD COUNT 3.99 X10'6 (4.70-6.10); RED CELL DISTRIBUTION WIDTH 15.5 % (11.5-14.5); WHITE BLOOD COUNT 4.8 X10'3 (4.5-11.0)
[2020-04-21 07:00] LABS: ALANINE AMINOTRANSFERASE 25 U/L (12-78); ALBUMIN 2.4 G/DL (3.4-5.0); ALBUMIN/GLOBULIN RATIO 0.8 (1.1-1.5); ALKALINE PHOSPHATASE 53 IU/L (46-116); AMYLASE 38 U/L (25-115); ANION GAP 10 (8-16); ASPARTATE AMINO TRANSFERASE 45 U/L (10-37); BLOOD UREA NITROGEN 5 MG/DL (7-18); BUN/CREATININE RATIO 7.8 (5.4-32.0); CALCIUM 6.9 MG/DL (8.5-10.1); CHLORIDE 103 MMOL/L (99-107); CREATININE 0.64 MG/DL (0.60-1.10); GLUCOSE 76 MG/DL (70-104); LIPASE 75 U/L (73-393); MAGNESIUM 1.5 MG/DL (1.5-2.4); POTASSIUM 3.2 MMOL/L (3.5-5.1); SODIUM 138 MMOL/L (135-145); TOTAL CARBON DIOXIDE 25.2 MMOL/L (24-32); TOTAL PROTEIN 5.6 G/DL (6.4-8.2); eGFR > 90 ML/MIN
[2020-04-21] MEDS ORDERED: pantoprazole 40mg Tablet.DR PO SCH (07:30)
[2020-04-21] MEDS: pantoprazole 40 MG vial IV SCH (07:53)
[2020-04-21] MEDS: folic acid 1mg tablet PO SCH (07:54)
[2020-04-21] MEDS: thiamine 100mg tablet PO SCH (07:55)
[2020-04-21] MEDS: cloNIDine 0.1 mg tablet PO SCH (07:55)
[2020-04-21] MEDS: lactobacillus rhamnosus 10,000 MMU CELLS/CAPSULE PO SCH (07:55)
[2020-04-21] MEDS: multivitamins, therapeutics tablet PO SCH (07:56)
[2020-04-21] MEDS: metoprolol tartrate 12.5mg (1/2 tablet) PO SCH (07:58)
[2020-04-21] MEDS: CefTRIAXone/D5W-Rocephin 1gm 50 ML IV SCH (07:59)
[2020-04-21] MEDS: enoxaparin 40mg/0.4ml syringe SUBCUT SCH (07:59)
[2020-04-21] MEDS ORDERED: lisinopril 10 MG tablet PO SCH (08:00)
[2020-04-21] MEDS: K and/or MAG REPLACEMENT MC SCH (08:00)
[2020-04-21] MEDS ORDERED: aspirin 81mg tablet.DR PO ONE (08:00)
[2020-04-21] MEDS: potassium Cl 20 mEq SR tablet PO PRN (10:44)
[2020-04-21 11:00] VITALS: BP 162/81
[2020-04-21] MEDS ORDERED: metoprolol tartrate tablet PO (11:28)
[2020-04-21] MEDS ORDERED: ATOR20TA66 PO (11:28)
[2020-04-21] MEDS ORDERED: ASPI81TA52 PO (11:28)
--- NOTE | 2020-04-21 14:00 | NUR ---
patient ready for discharge. prefferred pharmacy in place. all medications in pharmacy. pt denies any acutre distress. pt happy he is going home with family. educated patient on quitting drinking. explained and printed material for him. pt iv dc without complications. patient understands. waiting for to pickle processor on main lobby.
--- NOTE | 2020-04-21 14:30 | NUR ---
patient taken to front doors by shira student nurse. no complications observed. pt denies any pain at this time. pcked him up. all instructions given patient understands.
[2020-04-21] MEDS ORDERED: atorvastatin 20mg tablet PO SCH (20:00)
[2020-04-22] MEDS ORDERED: VANCOMYCIN LEVEL IV ONE (01:30)
== END 2020-04-21 14:30 | disposition home or self-care (01) | DRG 871 ==
LOC: ER 08:55 → ED HOLD 12:54 → PCU 3S 04-19 01:05
PROVIDERS: ADMIT Family Medicine; ATTEND Family Medicine
PROC: 4A02XM4 Measurement of Cardiac Total Activity, External Approach (ICD-10-PCS; principal; 2020-04-20)
PROC: 3E073KZ Introduction of Other Diagnostic Substance into Coronary Artery, Percutaneous Approach (ICD-10-PCS; 2020-04-20)
DX: A41.9 Sepsis, unspecified organism (principal); I21.A1 Myocardial infarction type 2; N17.0 Acute kidney failure with tubular necrosis; E87.2 Acidosis; F10.239 Alcohol dependence with withdrawal, unspecified; E11.40 Type 2 diabetes mellitus with diabetic neuropathy, unspecified; E66.9 Obesity, unspecified; F12.90 Cannabis use, unspecified, uncomplicated; I10 Essential (primary) hypertension; I95.9 Hypotension, unspecified; Z20.822 Contact with and (suspected) exposure to COVID-19; F10.229 Alcohol dependence with intoxication, unspecified; R07.81 Pleurodynia; R16.0 Hepatomegaly, not elsewhere classified; R19.7 Diarrhea, unspecified; M19.90 Unspecified osteoarthritis, unspecified site; Y90.3 Blood alcohol level of 60-79 mg/100 ml; Z82.49 Family history of ischemic heart disease and other diseases of the circulatory system; Z68.33 Body mass index [BMI] 33.0-33.9, adult; Z83.3 Family history of diabetes mellitus; Z87.891 Personal history of nicotine dependence; Z79.899 Other long term (current) drug therapy; Z71.41 Alcohol abuse counseling and surveillance of alcoholic
CPT/HCPCS: 36415; 36600; 71045; 76700; 76937; 78452; 80053; 80202; 80305; 80320; 81001; 82150; 82550; 82803; 82948; 83036; 83605; 83690; 83735; 84145; 84484; 85018; 85025; 85379; 85384; 85610; 85730; 86140; 87040; 87081; 87635; 93005; 93017; 93306; 96374; 96375; 97116; 97161; 97530; 99291; A9500; C9113; G0378; J0696; J1650; J1815; J1885; J2060; J2405; J2560; J2785; J3370; J3411; J7030; J7120

== ENCOUNTER 2021-03-26 07:21 | Inpatient (IN) | payer OTHER, SELFPAY ==
[~2021-03-26] VITALS: Ht 170.2 cm; Wt 86.4 kg
[~2021-03-26 07:21] MED LIST changes: +ATOR20TA66 PO; -LISI-600 PO; +LISI20TA28 PO; +metoprolol tartrate tablet PO
[2021-03-26] MEDS ORDERED: ondansetron/PF 4mg/2ml inj IV ONE (08:15)
[2021-03-26] MEDS ORDERED: normal saline 1000ML IV soln IVB ONE (08:15)
[2021-03-26 09:35] LABS: BASOPHILS % (AUTO) 0.1 % (0-1); EOSINOPHILS % (AUTO) 0 % (0-6); HEMOGLOBIN 13.4 g/dl (14.0-17.9); LYMPHOCYTES # (AUTO) 0.5 X10'3 (1.1-4.8); LYMPHOCYTES % (AUTO) 14.6 % (21-51); MEAN CORPUSCULAR HEMOGLOBIN 29.7 PG (27.0-31.0); MEAN CORPUSCULAR HGB CONC 36.4 g/dL (33.0-36.5); MEAN CORPUSCULAR VOLUME 81.6 FL (78-98); MEAN PLATELET VOLUME 10.1 FL (7.4-10.4); MONOCYTES # (AUTO) 0.4 X10'3 (0-0.9); MONOCYTES % (AUTO) 11.2 % (2-12); NEUTROPHILS # (AUTO) 2.5 X10'3 (1.8-7.7); NEUTROPHILS % (AUTO) 74.1 % (42-75); PLATELET COUNT 54 X10'3 (140-440); RED BLOOD COUNT 4.53 X10'6 (4.70-6.10); RED CELL DISTRIBUTION WIDTH 14.7 % (11.5-14.5); WHITE BLOOD COUNT 3.3 X10'3 (4.5-11.0)
[2021-03-26 10:01] LABS: ALANINE AMINOTRANSFERASE 19 U/L (12-78); ALBUMIN 2.6 G/DL (3.4-5.0); ALBUMIN/GLOBULIN RATIO 0.7 (1.1-1.5); ALKALINE PHOSPHATASE 69 IU/L (46-116); ANION GAP 9 (8-16); ASPARTATE AMINO TRANSFERASE 66 U/L (10-37); BILIRUBIN,TOTAL 1.2 MG/DL (0.1-1.0); BLOOD UREA NITROGEN 6 MG/DL (7-18); BUN/CREATININE RATIO 7.4 (5.4-32.0); CHLORIDE 86 MMOL/L (99-107); CREATININE 0.81 MG/DL (0.60-1.10); GLUCOSE 237 MG/DL (70-104); LIPASE 140 U/L (73-393); SODIUM 124 MMOL/L (135-145); TOTAL CARBON DIOXIDE 28.6 MMOL/L (24-32); TOTAL PROTEIN 6.2 G/DL (6.4-8.2); eGFR > 90 ML/MIN
[2021-03-26 10:08] LABS: POTASSIUM 2.1 MMOL/L (3.5-5.1)
[2021-03-26 10:09] LABS: CALCIUM 5.5 MG/DL (8.5-10.1)
[2021-03-26] MEDS ORDERED: magnesium 2GM in 50ml NS 50 ML IV ONE (10:10)
[2021-03-26] MEDS ORDERED: thiamine 100mg/ml 2ml inj. IV ONE (10:10)
[2021-03-26] MEDS ORDERED: ringers solution, lactated 1000ml IV soln IV ONE (10:10)
[2021-03-26] MEDS ORDERED: calcium chloride 100 MG/1 ML inj IV ONE (10:30)
[2021-03-26] MEDS: potassium Cl 10 mEq/100mL bag IV SCH ×2 (10:46→11:10)
[2021-03-26 10:49] LABS: MAGNESIUM 0.8 MG/DL (1.5-2.4)
[2021-03-26] MEDS ORDERED: LORazepam 2 mg/ml vial IV ONE (11:25)
[2021-03-26 11:44] LABS: ETHANOL 0.038 GM/DL (0.0-0.010)
[2021-03-26 12:02] LABS: PLATELET ESTIMATE DECREASED
[2021-03-26 12:05] LABS: LARGE PLATELETS FEW
[2021-03-26 12:06] LABS: SPHEROCYTES 1+
[2021-03-26 12:41] LABS: CLARITY,URINE CLEAR (Clear); GLUCOSE, URINE 250 mg/dl (Neg); KETONES,URINE NEGATIVE (Neg); LEUKOCYTE ESTERASE ,URINE NEGATIVE (Neg); NITRITES, URINE NEGATIVE (Neg); OCCULT BLOOD,URINE SMALL (Neg); PROTEIN,URINE NEGATIVE (Neg); UROBILINOGEN,URINE 0.2 E.U/dL (0.2-1.0)
[2021-03-26 12:46] LABS: COLOR,URINE STRAW (Yellow); UA COLLECTION TYPE VOIDED
[2021-03-26 12:47] LABS: SQUAMOUS EPITHELIAL CELL,UR FEW /LPF (FEW); TRANSITIONAL EPI CELLS,URINE FEW /HPF
[2021-03-26 12:48] LABS: BACTERIA,URINE NONE SEEN /HPF (Neg); RBC,URINE NONE SEEN /HPF (0-2); WBC,URINE 0-4 /HPF (0-4)
[2021-03-26] MEDS ORDERED: GABA300C PO (12:48)
[2021-03-26] MEDS ORDERED: TADA20TA43 PO (12:48)
[2021-03-26] MEDS ORDERED: ATOR20TA66 PO (12:48)
[2021-03-26] MEDS ORDERED: calcium gluconate inj. 3 GM in normal saline 100ml IV soln 100 ML IV ONE (14:40)
[2021-03-26] MEDS ORDERED: morphine 2 MG/ML inj. syringe IV PRN ×2 (14:40)
[2021-03-26] MEDS ORDERED: magnesium hydroxide 30ml (MOM) UD suspension PO PRN (14:40)
[2021-03-26] MEDS ORDERED: mag hydrox/Alum hydrox/simeth 30ml oral suspension PO PRN (14:40)
[2021-03-26] MEDS ORDERED: haloperidol lactate 5mg/ml inj IM PRN (14:40)
[2021-03-26] MEDS ORDERED: acetaminophen 325mg tablet PO PRN (14:40)
[2021-03-26] MEDS ORDERED: ondansetron/PF 4mg/2ml inj IV PRN (14:40)
[2021-03-26] MEDS ORDERED: potassium Cl 20 mEq SR tablet PO PRN (14:40)
[2021-03-26] MEDS ORDERED: magnesium 4gm in 100ml NS 100 ML IV PRN (14:40)
[2021-03-26] MEDS ORDERED: magnesium 2GM in 50ml NS 50 ML IV PRN (14:40)
--- NOTE | 2021-03-26 15:08 | NUR ---
received report from ed rn
[2021-03-26] MEDS ORDERED: calcium gluconate inj. 3 GM in normal saline 100ml IV soln 70 ML IV ONE (15:15)
[2021-03-26 15:44] VITALS: BP 169/92
[2021-03-26] MEDS: potassium CL 10mEq/100ml bag 100 ML IV PRN ×3 (15:44→17:55)
[2021-03-26 15:48] LABS: C-REACTIVE PROTEIN 4.75 MG/DL (0.0-0.5); D-DIMER 0.53 MG/L FEU (0-0.50); MAGNESIUM 1.3 MG/DL (1.5-2.4)
[2021-03-26] MEDS: LORazepam 2 mg/ml vial IV PRN ×2 (15:52→17:08)
[2021-03-26 17:09] LABS: HEMOGLOBIN A1C 7.2 % (4.5-6.2)
[2021-03-26] MEDS: Potassium Cl inj 20 MEQ in normal saline 1000ml 990 ML IV SCH ×2 (17:12→19:48)
[2021-03-26 18:00] VITALS: BP 151/92
--- NOTE | 2021-03-26 18:22 | NUR ---
gave to report to carol moran
[2021-03-26] MEDS: gabapentin 300mg capsule PO SCH (19:48)
[2021-03-26] MEDS: docusate sod 100mg capsule PO SCH (20:00)
[2021-03-26] MEDS: K and/or MAG REPLACEMENT MC SCH (20:00)
[2021-03-26] MEDS: lisinopril 20mg tablet PO SCH (20:04)
[2021-03-26] MEDS: TADALAFIL 20 MG PO SCH (20:30)
[2021-03-26] MEDS: potassium Cl 20 mEq SR tablet PO PRN (22:08)
[2021-03-26 22:36] VITALS: BP 156/88
[2021-03-26] MEDS: metoprolol tartrate 25mg tablet PO SCH (23:47)
[2021-03-27] MEDS: LORazepam 2 mg/ml vial IV PRN ×6 (00:46→21:25)
[2021-03-27] MEDS: Potassium Cl inj 20 MEQ in normal saline 1000ml 990 ML IV SCH (01:45)
[2021-03-27 02:00] VITALS: BP 151/85
[2021-03-27] MEDS: potassium Cl 20 mEq SR tablet PO PRN (02:33)
[2021-03-27] MEDS: potassium Cl 20mEq in NS 1,000 ML IV SCH ×2 (04:00→13:17)
[2021-03-27 06:00] VITALS: BP 136/85
--- NOTE | 2021-03-27 06:41 | NUR ---
Patient in room ORTHO 4020B. I have received report from MELIZA MIMS and had the opportunity to ask questions and assume patient care.
[2021-03-27] MEDS: docusate sod 100mg capsule PO SCH ×2 (07:53→20:00)
[2021-03-27] MEDS: K and/or MAG REPLACEMENT MC SCH ×2 (08:00→20:00)
[2021-03-27 08:04] LABS: EOSINOPHILS % (AUTO) 0 % (0-6); MONOCYTES # (AUTO) 0.5 X10'3 (0-0.9); NEUTROPHILS # (AUTO) 2.5 X10'3 (1.8-7.7)
[2021-03-27 08:19] LABS: ALANINE AMINOTRANSFERASE 16 U/L (12-78); ALBUMIN 2.6 G/DL (3.4-5.0); ALBUMIN/GLOBULIN RATIO 0.7 (1.1-1.5); ALKALINE PHOSPHATASE 70 IU/L (46-116); AMYLASE 46 U/L (25-115); ANION GAP 10 (8-16); ASPARTATE AMINO TRANSFERASE 58 U/L (10-37); BILIRUBIN,TOTAL 1.2 MG/DL (0.1-1.0); BLOOD UREA NITROGEN 8 MG/DL (7-18); BUN/CREATININE RATIO 10.1 (5.4-32.0); CALCIUM 7.1 MG/DL (8.5-10.1); CHLORIDE 97 MMOL/L (99-107); CREATININE 0.79 MG/DL (0.60-1.10); GLUCOSE 154 MG/DL (70-104); LIPASE 142 U/L (73-393); MAGNESIUM 2.2 MG/DL (1.5-2.4); PHOSPHORUS 2.5 MG/DL (2.3-4.5); POTASSIUM 3.1 MMOL/L (3.5-5.1); SODIUM 133 MMOL/L (135-145); TOTAL PROTEIN 6.4 G/DL (6.4-8.2); eGFR > 90 ML/MIN
[2021-03-27 09:29] LABS: BASOPHILS % (AUTO) 0.6 % (0-1); HEMATOCRIT 37.8 % (42.0-52.0); LYMPHOCYTES % (AUTO) 40.2 % (21-51); MEAN CORPUSCULAR HEMOGLOBIN 30.1 PG (27.0-31.0); MEAN CORPUSCULAR HGB CONC 36.9 g/dL (33.0-36.5); MEAN CORPUSCULAR VOLUME 81.7 FL (78-98); MEAN PLATELET VOLUME 10.2 FL (7.4-10.4); MONOCYTES % (AUTO) 9.9 % (2-12); NEUTROPHILS % (AUTO) 49.3 % (42-75); PLATELET COUNT 61 X10'3 (140-440); RED BLOOD COUNT 4.63 X10'6 (4.70-6.10); RED CELL DISTRIBUTION WIDTH 14.6 % (11.5-14.5); WHITE BLOOD COUNT 5.1 X10'3 (4.5-11.0)
[2021-03-27] MEDS: atorvastatin 20mg tablet PO SCH (09:43)
[2021-03-27] MEDS: cloNIDine 0.1 mg tablet PO SCH (09:43)
[2021-03-27] MEDS: multivitamins, therapeutics tablet PO SCH (09:44)
[2021-03-27] MEDS: metoprolol tartrate 25mg tablet PO SCH (09:44)
[2021-03-27] MEDS: lisinopril 20mg tablet PO SCH ×2 (09:45→21:36)
[2021-03-27] MEDS: pantoprazole 40mg Tablet.DR PO SCH (09:45)
[2021-03-27 10:00] VITALS: BP 178/88
[2021-03-27] MEDS: potassium CL 10mEq/100ml bag 100 ML IV PRN ×4 (10:02→13:16)
[2021-03-27 10:16] LABS: PLATELET ESTIMATE DECREASED
[2021-03-27 10:17] LABS: BURR CELLS 1+; SPHEROCYTES 2+
--- NOTE | 2021-03-27 11:20 | NUR ---
DM Consult: Pt admit DX severe etoh withdrawal in DT's and COVID-19 per EMR. Hx T2DM A1C 7.2 this admit up from 5.3-5.6 past 2 years per EMR. No DM home meds in EMR; LIANE d/w clinical pharmacist who reports pt previously on Amaryl though last received June 17. RD notified RN of DM med hx; RN reports pt still in DT's not appropriate for ed at this time. On thiamin, folic, MVI for etoh hx. Pt would benefit from DM ed prior to discharge once appropriate. Addendum: 03/27/21 at [address] Amended: Links added.
[2021-03-27 14:00] VITALS: BP 167/107
[2021-03-27] MEDS: piperacillin/tazo 4.5gm/100ml 100 ML IV SCH ×2 (16:55→23:56)
[2021-03-27 18:00] VITALS: BP 155/90
[2021-03-27] MEDS ORDERED: magnesium 4gm in 100ml NS 100 ML IV ONE (18:15)
--- NOTE | 2021-03-27 18:44 | NUR ---
Problems reprioritized. Patient report given, questions answered & plan of care reviewed with MELIZA Wong.
--- NOTE | 2021-03-27 18:46 | NUR ---
Problems reprioritized. Patient report given, questions answered & plan of care reviewed with MELIZA Wong.
[2021-03-27] MEDS: gabapentin 300mg capsule PO SCH (19:33)
[2021-03-27] MEDS: lactobacillus rhamnosus 10,000 MMU CELLS/CAPSULE PO SCH (19:34)
[2021-03-27] MEDS: TADALAFIL 20 MG PO SCH (21:00)
[2021-03-27 22:00] VITALS: BP 165/89
[2021-03-28] MEDS: potassium Cl 20mEq in NS 1,000 ML IV SCH ×3 (01:56→20:00)
[2021-03-28 02:02] VITALS: BP 145/84
[2021-03-28 07:02] VITALS: BP 153/83
[2021-03-28 07:39] LABS: BASOPHILS % (AUTO) 0.3 % (0-1); EOSINOPHILS % (AUTO) 0.1 % (0-6); HEMATOCRIT 35.6 % (42.0-52.0); LYMPHOCYTES # (AUTO) 0.9 X10'3 (1.1-4.8); MEAN CORPUSCULAR HEMOGLOBIN 29.7 PG (27.0-31.0); MEAN CORPUSCULAR HGB CONC 36.6 g/dL (33.0-36.5); MEAN CORPUSCULAR VOLUME 81.3 FL (78-98); MEAN PLATELET VOLUME 10.2 FL (7.4-10.4); MONOCYTES # (AUTO) 0.3 X10'3 (0-0.9); MONOCYTES % (AUTO) 9.8 % (2-12); NEUTROPHILS # (AUTO) 1.9 X10'3 (1.8-7.7); NEUTROPHILS % (AUTO) 61.8 % (42-75); PLATELET COUNT 62 X10'3 (140-440); RED BLOOD COUNT 4.38 X10'6 (4.70-6.10); RED CELL DISTRIBUTION WIDTH 15.1 % (11.5-14.5); WHITE BLOOD COUNT 3.1 X10'3 (4.5-11.0)
[2021-03-28 07:53] LABS: ALANINE AMINOTRANSFERASE 16 U/L (12-78); ALBUMIN 2.3 G/DL (3.4-5.0); ALBUMIN/GLOBULIN RATIO 0.7 (1.1-1.5); ALKALINE PHOSPHATASE 63 IU/L (46-116); AMYLASE 53 U/L (25-115); ANION GAP 7 (8-16); ASPARTATE AMINO TRANSFERASE 44 U/L (10-37); BILIRUBIN,TOTAL 1.3 MG/DL (0.1-1.0); BLOOD UREA NITROGEN 6 MG/DL (7-18); BUN/CREATININE RATIO 8.6 (5.4-32.0); CALCIUM 6.6 MG/DL (8.5-10.1); CHLORIDE 98 MMOL/L (99-107); GLUCOSE 116 MG/DL (70-104); LIPASE 252 U/L (73-393); MAGNESIUM 2.3 MG/DL (1.5-2.4); PHOSPHORUS 1.9 MG/DL (2.3-4.5); SODIUM 135 MMOL/L (135-145); TOTAL CARBON DIOXIDE 29.8 MMOL/L (24-32); TOTAL PROTEIN 5.8 G/DL (6.4-8.2); eGFR > 90 ML/MIN
[2021-03-28] MEDS: docusate sod 100mg capsule PO SCH ×2 (08:00→20:00)
[2021-03-28 08:01] LABS: POTASSIUM 2.9 MMOL/L (3.5-5.1)
--- NOTE | 2021-03-28 08:06 | NUR ---
PAGER ID: [phone] MESSAGE: Alex López 4020B FYI critical value 2.9 yemi Null [phone]
[2021-03-28] MEDS: thiamine 100mg tablet PO SCH (08:12)
[2021-03-28] MEDS: potassium Cl 20 mEq SR tablet PO PRN ×3 (08:13→15:30)
[2021-03-28] MEDS: metoprolol tartrate 25mg tablet PO SCH (08:13)
[2021-03-28] MEDS: pantoprazole 40mg Tablet.DR PO SCH (08:13)
[2021-03-28] MEDS: cloNIDine 0.1 mg tablet PO SCH (08:13)
[2021-03-28] MEDS: atorvastatin 20mg tablet PO SCH (08:13)
[2021-03-28] MEDS: K and/or MAG REPLACEMENT MC SCH ×2 (08:14→20:00)
[2021-03-28] MEDS: multivitamins, therapeutics tablet PO SCH (08:14)
[2021-03-28] MEDS: piperacillin/tazo 4.5gm/100ml 100 ML IV SCH ×2 (08:14→15:30)
[2021-03-28] MEDS: lactobacillus rhamnosus 10,000 MMU CELLS/CAPSULE PO SCH ×2 (08:15→20:38)
[2021-03-28] MEDS: LORazepam 2 mg/ml vial IV PRN (08:15)
[2021-03-28] MEDS: folic acid 1mg tablet PO SCH (08:15)
[2021-03-28] MEDS ORDERED: potassium phosphate inj 30 MMOL in normal saline 500ml IV soln 500 ML IV ONE (08:35)
[2021-03-28] MEDS ORDERED: calcium gluconate inj. 3 GM in normal saline 100ml IV soln 100 ML IV ONE (08:35)
[2021-03-28 09:02] LABS: ELLIPTOCYTES FEW; PLATELET ESTIMATE DECREASED; SPHEROCYTES 1+
[2021-03-28] MEDS ORDERED: calcium gluconate inj. 3 GM in normal saline 100ml IV soln 70 ML IV ONE (09:31)
[2021-03-28 10:11] VITALS: BP 169/99
[2021-03-28] MEDS: lisinopril 20mg tablet PO SCH ×2 (10:35→20:39)
[2021-03-28] MEDS: calcium carbonate 500mg chew tablet PO SCH ×2 (11:45→17:04)
[2021-03-28] MEDS ORDERED: dextrose 50%-water 50ml dispensing syringe IV PRN ×2 (13:50)
[2021-03-28] MEDS ORDERED: dextrose ORAL solution 15 GM/59 ML bottle PO PRN ×2 (13:50)
[2021-03-28] MEDS ORDERED: glucagon, human recombinant 1mg kit SUBCUT PRN (13:50)
[2021-03-28 14:09] VITALS: BP 151/88
--- NOTE | 2021-03-28 15:44 | NUR ---
Spouse updated x 2 today
[2021-03-28 18:00] VITALS: BP 164/103
--- NOTE | 2021-03-28 18:21 | NUR ---
Gave report to Amita HAIDER.
--- NOTE | 2021-03-28 18:23 | NUR ---
Patient in room ORTHO 4020. I have received report from Tennille HAIDER and had the opportunity to ask questions and assume patient care.
[2021-03-28] MEDS: insulin Lispro (HumaLOG) vial - multi-dose SQ SCH (18:53)
[2021-03-28] MEDS: gabapentin 300mg capsule PO SCH (20:39)
[2021-03-28] MEDS: insulin glargine (Lantus) pen - multi-dose SQ SCH (21:16)
[2021-03-28 22:00] VITALS: BP 168/83
[2021-03-29] MEDS: piperacillin/tazo 4.5gm/100ml 100 ML IV SCH ×2 (00:25→08:14)
--- NOTE | 2021-03-29 00:26 | NUR ---
Unable to obtain 2nd IV. Multiple tries from nurses on this floor and an ICU nurse unable to obtain a new IV. Putting maintenance fluids on hold to run abx then will reattach maintenance fluids.
[2021-03-29 02:00] VITALS: BP 119/75
[2021-03-29] MEDS: potassium Cl 20mEq in NS 1,000 ML IV SCH ×2 (04:38→19:27)
[2021-03-29 05:00] VITALS: BP 125/81
--- NOTE | 2021-03-29 06:36 | NUR ---
Problems reprioritized. Patient report given, questions answered & plan of care reviewed with Kika HAIDER.
--- NOTE | 2021-03-29 06:50 | NUR ---
Patient in room ORTHO 4020. I have received report from Amita HAIDER and had the opportunity to ask questions and assume patient care.
[2021-03-29 07:43] LABS: BASOPHILS % (AUTO) 0.8 % (0-1); EOSINOPHILS % (AUTO) 0.1 % (0-6); HEMATOCRIT 37.3 % (42.0-52.0); HEMOGLOBIN 13.7 g/dl (14.0-17.9); LYMPHOCYTES # (AUTO) 1.2 X10'3 (1.1-4.8); LYMPHOCYTES % (AUTO) 23.9 % (21-51); MEAN CORPUSCULAR HGB CONC 36.6 g/dL (33.0-36.5); MEAN PLATELET VOLUME 10.7 FL (7.4-10.4); MONOCYTES # (AUTO) 0.5 X10'3 (0-0.9); MONOCYTES % (AUTO) 10.7 % (2-12); NEUTROPHILS # (AUTO) 3.2 X10'3 (1.8-7.7); NEUTROPHILS % (AUTO) 64.5 % (42-75); PLATELET COUNT 86 X10'3 (140-440); RED BLOOD COUNT 4.55 X10'6 (4.70-6.10); RED CELL DISTRIBUTION WIDTH 14.8 % (11.5-14.5)
[2021-03-29 07:51] LABS: PLATELET ESTIMATE DECREASED
[2021-03-29 07:52] LABS: SPHEROCYTES 2+
[2021-03-29 07:54] LABS: ALANINE AMINOTRANSFERASE 20 U/L (12-78); ALBUMIN 2.3 G/DL (3.4-5.0); ALBUMIN/GLOBULIN RATIO 0.6 (1.1-1.5); ALKALINE PHOSPHATASE 74 IU/L (46-116); AMYLASE 41 U/L (25-115); ANION GAP 7 (8-16); ASPARTATE AMINO TRANSFERASE 40 U/L (10-37); BILIRUBIN,TOTAL 1.5 MG/DL (0.1-1.0); BLOOD UREA NITROGEN 4 MG/DL (7-18); BUN/CREATININE RATIO 5.8 (5.4-32.0); CALCIUM 7.3 MG/DL (8.5-10.1); CHLORIDE 99 MMOL/L (99-107); CREATININE 0.69 MG/DL (0.60-1.10); GLUCOSE 93 MG/DL (70-104); LIPASE 121 U/L (73-393); MAGNESIUM 1.3 MG/DL (1.5-2.4); PHOSPHORUS 1.8 MG/DL (2.3-4.5); POTASSIUM 3.5 MMOL/L (3.5-5.1); SODIUM 133 MMOL/L (135-145); TOTAL CARBON DIOXIDE 27.1 MMOL/L (24-32); TOTAL PROTEIN 6.1 G/DL (6.4-8.2); eGFR > 90 ML/MIN
[2021-03-29] MEDS: docusate sod 100mg capsule PO SCH ×2 (08:00→20:00)
[2021-03-29] MEDS: K and/or MAG REPLACEMENT MC SCH ×2 (08:00→20:00)
[2021-03-29] MEDS: atorvastatin 20mg tablet PO SCH (08:14)
[2021-03-29] MEDS: pantoprazole 40mg Tablet.DR PO SCH (08:14)
[2021-03-29] MEDS: folic acid 1mg tablet PO SCH (08:14)
[2021-03-29] MEDS: multivitamins, therapeutics tablet PO SCH (08:14)
[2021-03-29] MEDS: metoprolol tartrate 25mg tablet PO SCH (08:15)
[2021-03-29] MEDS: cloNIDine 0.1 mg tablet PO SCH (08:15)
[2021-03-29] MEDS: lactobacillus rhamnosus 10,000 MMU CELLS/CAPSULE PO SCH ×2 (08:15→20:52)
[2021-03-29] MEDS: lisinopril 20mg tablet PO SCH ×2 (08:16→20:52)
[2021-03-29] MEDS: thiamine 100mg tablet PO SCH (08:16)
[2021-03-29] MEDS: calcium carbonate 500mg chew tablet PO SCH ×3 (08:16→17:52)
[2021-03-29] MEDS: insulin Lispro (HumaLOG) vial - multi-dose SQ SCH ×3 (09:35→18:47)
--- NOTE | 2021-03-29 09:52 | NUR ---
PAGER ID: [phone] MESSAGE: [phone] Faustina - re: Alex López. Can I order PO magnesium replacement due to lack of iv access?
[2021-03-29 10:00] VITALS: BP 136/75
[2021-03-29] MEDS ORDERED: magnesium Cl slow-release 64mg tablet PO SCH (10:35)
[2021-03-29] MEDS: magnesium Cl slow-release 64mg tablet PO PRN ×2 (11:09→20:56)
[2021-03-29 14:00] VITALS: BP 125/89
--- NOTE | 2021-03-29 15:39 | NUR ---
F/u 03/29: LIANE d/w RN who reports pt more appropriate for DM ed at this time. LIANE attempted to contact pt via TC for DM ed however no answer. Written DM ed w/ LIANE contact information mailed to pt home address in EMR. Addendum: 03/29/21 at [address] Amended: Links added.
[2021-03-29 18:00] VITALS: BP 145/96
--- NOTE | 2021-03-29 18:27 | NUR ---
Patient in room ORTHO 4020. I have received report from Kika HAIDER and had the opportunity to ask questions and assume patient care.
--- NOTE | 2021-03-29 18:29 | NUR ---
Problems reprioritized. Patient report given, questions answered & plan of care reviewed with Amita HAIDER.
[2021-03-29] MEDS: gabapentin 300mg capsule PO SCH (20:52)
[2021-03-29] MEDS: insulin glargine (Lantus) pen - multi-dose SQ SCH (21:09)
[2021-03-29 22:00] VITALS: BP 163/87
[2021-03-30 02:00] VITALS: BP 182/101
[2021-03-30] MEDS: potassium Cl 20mEq in NS 1,000 ML IV SCH ×2 (02:00→22:00)
[2021-03-30 06:00] VITALS: BP 171/99
--- NOTE | 2021-03-30 06:19 | NUR ---
Problems reprioritized. Patient report given, questions answered & plan of care reviewed with Faustina HAIDER.
--- NOTE | 2021-03-30 06:40 | NUR ---
Patient in room ORTHO 4020. I have received report from Amita HAIDER and had the opportunity to ask questions and assume patient care.
[2021-03-30] MEDS: K and/or MAG REPLACEMENT MC SCH (08:00)
[2021-03-30 09:39] LABS: HEMOGLOBIN 13.3 g/dl (14.0-17.9); MEAN PLATELET VOLUME 9.7 FL (7.4-10.4); MONOCYTES # (AUTO) 0.7 X10'3 (0-0.9); NEUTROPHILS # (AUTO) 2.9 X10'3 (1.8-7.7)
[2021-03-30 09:41] LABS: BASOPHILS # (AUTO) 0.1 X10'3 (0-0.2); BASOPHILS % (AUTO) 1.4 % (0-1); EOSINOPHILS % (AUTO) 0.3 % (0-6); HEMATOCRIT 36.4 % (42.0-52.0); MEAN CORPUSCULAR HEMOGLOBIN 29.8 PG (27.0-31.0); MEAN CORPUSCULAR VOLUME 81.6 FL (78-98); MONOCYTES % (AUTO) 14.1 % (2-12); NEUTROPHILS % (AUTO) 63.2 % (42-75); RED BLOOD COUNT 4.45 X10'6 (4.70-6.10); RED CELL DISTRIBUTION WIDTH 14.8 % (11.5-14.5); WHITE BLOOD COUNT 4.6 X10'3 (4.5-11.0)
[2021-03-30 09:51] LABS: ALANINE AMINOTRANSFERASE 17 U/L (12-78); ALBUMIN 2.3 G/DL (3.4-5.0); ALBUMIN/GLOBULIN RATIO 0.6 (1.1-1.5); ALKALINE PHOSPHATASE 75 IU/L (46-116); AMYLASE 40 U/L (25-115); ANION GAP 9 (8-16); ASPARTATE AMINO TRANSFERASE 30 U/L (10-37); BILIRUBIN,TOTAL 1.6 MG/DL (0.1-1.0); BLOOD UREA NITROGEN 5 MG/DL (7-18); BUN/CREATININE RATIO 8.3 (5.4-32.0); CALCIUM 7.4 MG/DL (8.5-10.1); CHLORIDE 96 MMOL/L (99-107); GLUCOSE 94 MG/DL (70-104); LIPASE 125 U/L (73-393); MAGNESIUM 1.3 MG/DL (1.5-2.4); PHOSPHORUS 2.2 MG/DL (2.3-4.5); POTASSIUM 3.7 MMOL/L (3.5-5.1); SODIUM 131 MMOL/L (135-145); TOTAL CARBON DIOXIDE 26.1 MMOL/L (24-32); TOTAL PROTEIN 6.2 G/DL (6.4-8.2); eGFR > 90 ML/MIN
[2021-03-30] MEDS: cloNIDine 0.1 mg tablet PO SCH (10:05)
[2021-03-30] MEDS: docusate sod 100mg capsule PO SCH ×2 (10:05→19:55)
[2021-03-30] MEDS: lactobacillus rhamnosus 10,000 MMU CELLS/CAPSULE PO SCH ×2 (10:06→19:55)
[2021-03-30] MEDS: metoprolol tartrate 25mg tablet PO SCH (10:06)
[2021-03-30] MEDS: atorvastatin 20mg tablet PO SCH (10:06)
[2021-03-30] MEDS: multivitamins, therapeutics tablet PO SCH (10:06)
[2021-03-30] MEDS: folic acid 1mg tablet PO SCH (10:06)
[2021-03-30] MEDS: calcium carbonate 500mg chew tablet PO SCH ×3 (10:07→17:09)
[2021-03-30] MEDS: lisinopril 20mg tablet PO SCH ×2 (10:07→19:55)
[2021-03-30 10:09] LABS: PLATELET COUNT 101 X10'3 (140-440)
[2021-03-30 10:10] LABS: MEAN CORPUSCULAR HGB CONC 36.5 g/dL (33.0-36.5)
[2021-03-30] MEDS: pantoprazole 40mg Tablet.DR PO SCH (10:10)
[2021-03-30] MEDS: thiamine 100mg tablet PO SCH (10:10)
[2021-03-30] MEDS: magnesium Cl slow-release 64mg tablet PO PRN (10:10)
[2021-03-30] MEDS: insulin Lispro (HumaLOG) vial - multi-dose SQ SCH ×3 (10:21→19:54)
[2021-03-30 10:30] VITALS: BP 174/99
--- NOTE | 2021-03-30 12:48 | NUR ---
Initial: Pt admit for gus DTs and COVID with hypokalemia, hypocalcemia, hypomagnesemia, and hyponatremia. Pt receiving routine and PRN electrolyte replacement as well as routine Thiamine, Folic acid, and MVI. Pt on a heart healthy CHO controlled diet with poor PO intake throughout LOS that is slowly improving, initially with mostly 0% PO intake of meals however improving with ~37% PO intake since 03/29, though still not meeting estimated nutrient needs. Recommend Ensure Enlive TID to optimize nutrition status, to be sent pending physician approval in EMR. IF PO intake of meals does not improve, recommend liberalizing to regular diet to optimize PO intake. Pt with no significant cardiac PMH in EMR and BG levels fairly well controlled throughout LOS. LBM 03/28, receiving routine bowel care. Will continue to follow closely and make recommendations as appropriate. Recommendations: 1) Continue CHO controlled diet; consider discontinuing heart healthy diet in view of no significant cardiac PMH; liberalize to regular diet with physician approval IF PO intake of meals does not improve 2) Ensure Enlive TIDWM, pending physician approval in EMR 3) Continue routine Thiamine, Folic acid, and MVI for EtOH hx 4) Routine bowel care 5) Scaled weight this admit; weekly scaled weights thereafter Addendum: 03/30/21 at [address] Amended: Links added.
[2021-03-30 14:30] VITALS: BP 175/86
[2021-03-30 17:45] VITALS: BP 172/93
--- NOTE | 2021-03-30 18:40 | NUR ---
Problems reprioritized. Patient report given, questions answered & plan of care reviewed with Valentine HAIDER.
[2021-03-30] MEDS: gabapentin 300mg capsule PO SCH (19:55)
[2021-03-30] MEDS: insulin glargine (Lantus) pen - multi-dose SQ SCH (21:37)
[2021-03-30 22:00] VITALS: BP 152/76
[2021-03-31 02:00] VITALS: BP 147/99
[2021-03-31 06:00] VITALS: BP 152/74
--- NOTE | 2021-03-31 06:03 | NUR ---
Problems reprioritized. Patient report given, questions answered & plan of care reviewed with LUIS HAIDER.
--- NOTE | 2021-03-31 06:51 | NUR ---
Patient in room ORTHO 4020B. I have received report from MELIZA Grijalva and had the opportunity to ask questions and assume patient care.
[2021-03-31 07:31] LABS: BASOPHILS # (AUTO) 0.1 X10'3 (0-0.2); BASOPHILS % (AUTO) 1.2 % (0-1); EOSINOPHILS # (AUTO) 0.1 X10'3 (0-0.9); EOSINOPHILS % (AUTO) 0.9 % (0-6); HEMATOCRIT 39.3 % (42.0-52.0); HEMOGLOBIN 14.2 g/dl (14.0-17.9); LYMPHOCYTES # (AUTO) 1.3 X10'3 (1.1-4.8); LYMPHOCYTES % (AUTO) 25.3 % (21-51); MEAN CORPUSCULAR HEMOGLOBIN 29.9 PG (27.0-31.0); MEAN CORPUSCULAR HGB CONC 36.1 g/dL (33.0-36.5); MEAN CORPUSCULAR VOLUME 82.7 FL (78-98); MEAN PLATELET VOLUME 10.1 FL (7.4-10.4); MONOCYTES # (AUTO) 0.7 X10'3 (0-0.9); MONOCYTES % (AUTO) 13.1 % (2-12); NEUTROPHILS # (AUTO) 3.2 X10'3 (1.8-7.7); NEUTROPHILS % (AUTO) 59.5 % (42-75); PLATELET COUNT 165 X10'3 (140-440); RED BLOOD COUNT 4.75 X10'6 (4.70-6.10); RED CELL DISTRIBUTION WIDTH 14.9 % (11.5-14.5); WHITE BLOOD COUNT 5.3 X10'3 (4.5-11.0)
[2021-03-31 07:41] LABS: ALANINE AMINOTRANSFERASE 16 U/L (12-78); ALBUMIN 2.3 G/DL (3.4-5.0); ALBUMIN/GLOBULIN RATIO 0.5 (1.1-1.5); ALKALINE PHOSPHATASE 78 IU/L (46-116); AMYLASE 55 U/L (25-115); ANION GAP 9 (8-16); ASPARTATE AMINO TRANSFERASE 25 U/L (10-37); BILIRUBIN,TOTAL 1.5 MG/DL (0.1-1.0); BLOOD UREA NITROGEN 5 MG/DL (7-18); BUN/CREATININE RATIO 6.6 (5.4-32.0); CALCIUM 7.6 MG/DL (8.5-10.1); CHLORIDE 98 MMOL/L (99-107); CREATININE 0.76 MG/DL (0.60-1.10); GLUCOSE 121 MG/DL (70-104); LIPASE 177 U/L (73-393); MAGNESIUM 1.5 MG/DL (1.5-2.4); PHOSPHORUS 2.5 MG/DL (2.3-4.5); POTASSIUM 3.7 MMOL/L (3.5-5.1); SODIUM 134 MMOL/L (135-145); TOTAL CARBON DIOXIDE 26.6 MMOL/L (24-32); TOTAL PROTEIN 6.7 G/DL (6.4-8.2); eGFR > 90 ML/MIN
[2021-03-31] MEDS: K and/or MAG REPLACEMENT MC SCH (08:00)
[2021-03-31] MEDS ORDERED: thiamine 100mg tablet PO SCH (08:00)
[2021-03-31] MEDS ORDERED: folic acid 1mg tablet PO SCH (08:00)
[2021-03-31] MEDS: potassium Cl 20mEq in NS 1,000 ML IV SCH ×2 (08:00→10:43)
[2021-03-31] MEDS: multivitamins, therapeutics tablet PO SCH (08:02)
[2021-03-31] MEDS: atorvastatin 20mg tablet PO SCH (08:02)
[2021-03-31] MEDS: pantoprazole 40mg Tablet.DR PO SCH (08:02)
[2021-03-31] MEDS: calcium carbonate 500mg chew tablet PO SCH ×2 (08:02→13:19)
[2021-03-31] MEDS: lactobacillus rhamnosus 10,000 MMU CELLS/CAPSULE PO SCH (08:02)
[2021-03-31] MEDS: folic acid 1mg tablet PO SCH (08:02)
[2021-03-31] MEDS: docusate sod 100mg capsule PO SCH (08:03)
[2021-03-31] MEDS: thiamine 100mg tablet PO SCH (08:03)
[2021-03-31] MEDS: metoprolol tartrate 25mg tablet PO SCH (08:04)
[2021-03-31] MEDS: lisinopril 20mg tablet PO SCH (08:04)
[2021-03-31] MEDS: cloNIDine 0.1 mg tablet PO SCH (08:04)
[2021-03-31 08:41] LABS: LARGE PLATELETS FEW; PLATELET ESTIMATE NORMAL; SPHEROCYTES 2+
[2021-03-31] MEDS: insulin Lispro (HumaLOG) vial - multi-dose SQ SCH ×2 (09:47→13:21)
[2021-03-31 10:00] VITALS: BP 185/92
[2021-03-31 14:00] VITALS: BP 161/98
[2021-03-31] MEDS ORDERED: MULT-25 PO (15:48)
--- NOTE | 2021-03-31 17:10 | NUR ---
d/c instructions given, questions answered. belongings gathered by pt and sent with pt. d/c'd pt in stable condition to home in private vehicle accompanied by . pt left floor at 1705
== END 2021-03-31 17:05 | disposition home or self-care (01) | DRG 178 ==
LOC: ER 07:22 → ED HOLD 14:48 → ORTHO 4S 15:30
PROVIDERS: ADMIT Family Medicine; ATTEND Family Medicine
DX: U07.1 COVID-19 (principal); E87.1 Hypo-osmolality and hyponatremia; F10.231 Alcohol dependence with withdrawal delirium; D68.9 Coagulation defect, unspecified; E11.9 Type 2 diabetes mellitus without complications; E78.5 Hyperlipidemia, unspecified; E83.42 Hypomagnesemia; E83.51 Hypocalcemia; D69.6 Thrombocytopenia, unspecified; F12.90 Cannabis use, unspecified, uncomplicated; R19.7 Diarrhea, unspecified; E86.0 Dehydration; E87.6 Hypokalemia; I10 Essential (primary) hypertension; K21.9 Gastro-esophageal reflux disease without esophagitis; Z79.899 Other long term (current) drug therapy; E83.39 Other disorders of phosphorus metabolism
CPT/HCPCS: 36410; 36415; 80053; 80320; 81001; 82150; 82310; 82948; 83036; 83605; 83690; 83735; 84100; 84132; 85008; 85025; 85379; 85610; 86140; 87040; 87081; 87635; 96361; 96365; 96375; 97116; 97161; 97530; 99285; C9803; G0378; J0610; J1815; J2060; J2405; J2543; J3411; J3475; J3480; J3490; J7030; J7040; J7120